=== PATIENT | male | born 1975 | race Caucasian/White ===

== ENCOUNTER 2020-08-15 21:49 | Inpatient (IN) ==
[2020-08-15] MEDS ORDERED: Aspirin 81 MG TAB.CHEW PO ONE (21:54)
[2020-08-15] MEDS ORDERED: *HR* Ticagrelor 90 MG TABLET PO ONE (21:57)
[2020-08-15] MEDS ORDERED: *HR* Heparin 5,000 UNIT/ML VIAL IVP ONE (21:59)
[2020-08-15] MEDS ORDERED: *HR* LORazepam 2 MG/ML VIAL IVP ONE (22:03)
[2020-08-15] MEDS ORDERED: Morphine Sulfate 2 MG/ML SYRINGE IVP ONE (22:03)
[2020-08-15 22:07] LABS: Basophils # 0.1 K/mcL (0.0-0.2); Basophils % 1.1 %; Eosinophils # 0.3 K/mcL (0.0-0.6); Eosinophils % 2.5 %; Hematocrit 46.6 % (37.5-50.1); Hemoglobin 16.2 g/dL (12.9-16.9); Immature Granulocytes % 0.4 % (0-4); Lymphocytes # 4.2 K/mcL (0.6-4.6); Lymphocytes % 35.8 %; Mean Corpuscular HGB Conc 34.8 g/dL (31.6-35.5); Mean Corpuscular Hemoglobin 30.4 pg (28.0-33.3); Mean Corpuscular Volume 87.4 fL (83.0-100.0); Mean Platelet Volume 9.5 fL (9.4-12.4); Monocytes % 8.4 %; Platelet Count 331 K/mcL (140-400); Red Blood Count 5.33 M/mcL (4.19-5.50); Red Cell Distribution Width 12.6 % (11.5-14.5); Segmented Neutrophils % 51.8 %; White Blood Count 11.6 K/mcL (4.3-11.1)
[2020-08-15 22:14] LABS: INR 1.1; Prothrombin Time 12.4 Seconds (9.4-12.1)
[2020-08-15 22:17] LABS: Activated Partial Thrombo Time 27.9 Seconds (26.0-36.0)
[2020-08-15] MEDS ORDERED: 0.9 % Sodium Chloride 1,000 ML ONE ×2 (22:19→22:24)
[2020-08-15 22:23] LABS: BUN/Creatinine Ratio 16 (6-26); Blood Urea Nitrogen 15 mg/dL (6-20); Calcium 9.5 mg/dL (8.6-10.3); Carbon Dioxide 21 mEq/L (23-29); Chloride 100 mEq/L (98-107); Glucose 286 mg/dL (70-105); Magnesium 1.5 mg/dL (1.6-2.6); Osmolality,Calculated 289 (280-300); Potassium 3.6 mEq/L (3.5-5.1); Sodium 134 mEq/L (136-145); eGFR For African Americans > 60 (> 60); eGFR For Non-African Americans > 60 (> 60)
[2020-08-15] MEDS ORDERED: *HR* Midazolam HCl 2 MG/2 ML VIAL ONE ×2 (22:24→23:09)
[2020-08-15] MEDS ORDERED: Nitroglycerin 1,000 MCG/10 ML VIAL IV ONE (22:24)
[2020-08-15] MEDS ORDERED: *HR* Heparin 10,000 UNIT/10 ML VIAL ONE (22:24)
[2020-08-15] MEDS ORDERED: Heparin 1,000 UNITS/500 mL 500 ML ONE ×2 (22:24→23:55)
[2020-08-15] MEDS ORDERED: *HR* FentaNYL (PF) 100 MCG/2 ML VIAL ONE ×2 (22:24→23:09)
[2020-08-15] MEDS ORDERED: ISOVUE-370 200 ML INFUS..BTL ONE (22:24)
[2020-08-15] MEDS ORDERED: *HR* Atropine Sulfate 1 MG/10 ML SYRINGE ONE (22:51)
[2020-08-15 23:15] LABS: Platelet Estimate Normal (Normal)
[2020-08-15] MEDS ORDERED: *HR* HYDROmorphone 2 MG/ML SYRINGE ONE (23:21)
[2020-08-15 23:25] LABS: Troponin I 0.23 ng/mL (< 0.04)
[2020-08-15] MEDS ORDERED: Tirofiban 5 MG/100 mL 5 MG/100 ML VIAL IV ONE (23:36)
[2020-08-16] MEDS ORDERED: *HR* Heparin 10,000 UNIT/10 ML VIAL ONE (00:28)
[2020-08-16] MEDS ORDERED: Heparin 1,000 UNITS/500 mL 500 ML ONE (00:46)
[2020-08-16] MEDS ORDERED: Perflutren Lipid Microsphere 1.3 ML in 0.9 % Sodium Chloride 8.7 ML IVP PRN (01:40)
[2020-08-16] MEDS ORDERED: 0.9 % Sodium Chloride 1,000 ML IVC SCH (01:45)
[2020-08-16] MEDS ORDERED: D5% in Water 1,000 ML IVC PRN (02:35)
[2020-08-16] MEDS ORDERED: Dextrose Gel 15 GM/37.5 ML TUBE PO PRN ×2 (02:35)
[2020-08-16] MEDS ORDERED: *HR* Dextrose 50 % in Water (Vial) 50 ML VIAL IVP PRN (02:35)
[2020-08-16 05:37] LABS: Basophils # 0.1 K/mcL (0.0-0.2); Basophils % 0.7 %; Eosinophils # 0.1 K/mcL (0.0-0.6); Eosinophils % 0.6 %; Hematocrit 43.5 % (37.5-50.1); Hemoglobin 14.8 g/dL (12.9-16.9); Immature Granulocytes % 0.5 % (0-4); Lymphocytes # 2.4 K/mcL (0.6-4.6); Lymphocytes % 17.3 %; Mean Corpuscular Hemoglobin 29.8 pg (28.0-33.3); Mean Corpuscular Volume 87.5 fL (83.0-100.0); Monocytes # 1.2 K/mcL (0.0-1.3); Monocytes % 8.4 %; Platelet Count 295 K/mcL (140-400); Red Blood Count 4.97 M/mcL (4.19-5.50); Red Cell Distribution Width 12.8 % (11.5-14.5); Segmented Neutrophils % 72.5 %; White Blood Count 13.7 K/mcL (4.3-11.1)
[2020-08-16 05:48] LABS: BUN/Creatinine Ratio 21 (6-26); Blood Urea Nitrogen 13 mg/dL (6-20); Calcium 8.5 mg/dL (8.6-10.3); Carbon Dioxide 21 mEq/L (23-29); Chloride 104 mEq/L (98-107); Glucose 237 mg/dL (70-105); Osmolality,Calculated 288 (280-300); Potassium 3.9 mEq/L (3.5-5.1); Sodium 135 mEq/L (136-145); Troponin I > 73.00 ng/mL (< 0.04); eGFR For African Americans > 60 (> 60); eGFR For Non-African Americans > 60 (> 60)
[2020-08-16] MEDS ORDERED: Acetaminophen 325 MG TABLET PO ONE (06:16)
[2020-08-16] MEDS: Insulin LISPRO 300 UNITS/3 ML VIAL SQ SCH ×3 (06:47→16:29)
[2020-08-16] MEDS: *HR* Ticagrelor 90 MG TABLET PO SCH ×2 (07:42→20:11)
[2020-08-16] MEDS: Aspirin 81 MG TAB.CHEW PO SCH (07:43)
[2020-08-16] MEDS ORDERED: Nitroglycerin 0.4 MG TAB.SUBL SL PRN (09:23)
[2020-08-16] MEDS: lisinopriL 5 MG TABLET PO SCH (11:00)
[2020-08-16] MEDS ORDERED: ALPRAZolam 1 MG TABLET PO SCH (13:00)
[2020-08-16] MEDS ORDERED: ALPRAZolam 1 MG TABLET PO ONE (14:43)
[2020-08-16] MEDS: Acetaminophen 325 MG TABLET PO PRN (16:36)
[2020-08-16] MEDS: ALPRAZolam 1 MG TABLET PO SCH (20:10)
[2020-08-17] MEDS: Insulin LISPRO 300 UNITS/3 ML VIAL SQ SCH ×3 (07:53→16:31)
[2020-08-17] MEDS: ALPRAZolam 1 MG TABLET PO SCH ×3 (07:57→20:00)
[2020-08-17] MEDS: *HR* Ticagrelor 90 MG TABLET PO SCH ×2 (08:00→20:02)
[2020-08-17] MEDS: Aspirin 81 MG TAB.CHEW PO SCH (08:00)
[2020-08-17] MEDS: Fenofibrate 54 MG TABLET PO SCH (08:01)
[2020-08-17] MEDS: lisinopriL 5 MG TABLET PO SCH (08:02)
[2020-08-17] MEDS: Dapagliflozin Propanediol [Farxiga] 10 MG PO SCH (08:16)
[2020-08-17 08:45] LABS: Basophils % 0.2 %; Eosinophils % 0.3 %; Hematocrit 44.4 % (37.5-50.1); Hemoglobin 14.9 g/dL (12.9-16.9); Immature Granulocytes % 0.5 % (0-4); Lymphocytes # 1.8 K/mcL (0.6-4.6); Lymphocytes % 14.5 %; Mean Corpuscular HGB Conc 33.6 g/dL (31.6-35.5); Mean Corpuscular Hemoglobin 30.4 pg (28.0-33.3); Mean Corpuscular Volume 90.6 fL (83.0-100.0); Mean Platelet Volume 9.8 fL (9.4-12.4); Monocytes # 1.2 K/mcL (0.0-1.3); Platelet Count 262 K/mcL (140-400); Red Cell Distribution Width 12.7 % (11.5-14.5); Segmented Neutrophils % 74.5 %; White Blood Count 12.1 K/mcL (4.3-11.1)
[2020-08-17 09:04] LABS: BUN/Creatinine Ratio 16 (6-26); Blood Urea Nitrogen 11 mg/dL (6-20); Calcium 8.7 mg/dL (8.6-10.3); Carbon Dioxide 21 mEq/L (23-29); Chloride 102 mEq/L (98-107); Glucose 222 mg/dL (70-105); Magnesium 1.8 mg/dL (1.6-2.6); Osmolality,Calculated 282 (280-300); Potassium 3.6 mEq/L (3.5-5.1); Sodium 133 mEq/L (136-145); eGFR For African Americans > 60 (> 60); eGFR For Non-African Americans > 60 (> 60)
[2020-08-17 09:08] LABS: Troponin I 68.48 ng/mL (< 0.04)
[2020-08-17 11:17] LABS: Alanine Aminotransferase 82 Units/L (7-52); Aspartate Amino Transferase 178 Units/L (13-39)
[2020-08-17] MEDS: Metoprolol XL (24 HR) Succ 50 MG TAB.ER.24H PO SCH (20:01)
[2020-08-17] MEDS: Acetaminophen 325 MG TABLET PO PRN (20:07)
[2020-08-18 02:06] LABS: BUN/Creatinine Ratio 20 (6-26); Blood Urea Nitrogen 16 mg/dL (6-20); Carbon Dioxide 21 mEq/L (23-29); Chloride 104 mEq/L (98-107); Glucose 215 mg/dL (70-105); Osmolality,Calculated 288 (280-300); Potassium 3.8 mEq/L (3.5-5.1); Sodium 135 mEq/L (136-145); eGFR For African Americans > 60 (> 60); eGFR For Non-African Americans > 60 (> 60)
[2020-08-18] MEDS: Insulin LISPRO 300 UNITS/3 ML VIAL SQ SCH (07:36)
[2020-08-18] MEDS: ALPRAZolam 1 MG TABLET PO SCH (07:41)
[2020-08-18] MEDS: Aspirin 81 MG TAB.CHEW PO SCH (07:43)
[2020-08-18] MEDS: lisinopriL 5 MG TABLET PO SCH (07:43)
[2020-08-18] MEDS: Fenofibrate 54 MG TABLET PO SCH (07:43)
[2020-08-18] MEDS: *HR* Ticagrelor 90 MG TABLET PO SCH (07:43)
[2020-08-18 09:44] VITALS: BP 118/92
[2020-08-18] MEDS: Dapagliflozin Propanediol [Farxiga] 10 MG PO SCH (09:50)
[2020-08-18] MEDS: Metoprolol XL (24 HR) Succ 50 MG TAB.ER.24H PO SCH (10:00)
== END 2020-08-18 13:42 | disposition home or self-care (01) | DRG 229 ==
LOC: EMEROOARM 21:49 → ICNU 22:29
PROVIDERS: ADMIT Internal Medicine Cardiovascular Disease; ATTEND Internal Medicine Cardiovascular Disease